=== PATIENT | male | born 1955 | race Caucasian/White ===

== ENCOUNTER 2017-09-04 06:10 | Day surgery (SDC) | payer OTHER ==
[~2017-09-04 06:10] MED LIST: AMBIEN10 MG PO; CARAFATE1 GM PO; CATAFLAN PO; COZAAR100 MG PO; FLOVENT DISKU100 MCG IH; MONTELUKAST SOD10 MG PO; VENTOLIN HFA18 GM IH; ZANTAC150 MG PO
[2017-09-04] MEDS ORDERED: DUI500 PO (10:10)
[2017-09-04] MEDS ORDERED: TRAM1TAB98 PO (10:10)
== END 2017-09-04 13:25 | disposition home or self-care (01) ==
LOC: CIR.AMB 06:10
DX: M23.322 Other meniscus derangements, posterior horn of medial meniscus, left knee (principal); M23.352 Other meniscus derangements, posterior horn of lateral meniscus, left knee; M17.12 Unilateral primary osteoarthritis, left knee